=== PATIENT | male | born 1940 | race Caucasian/White ===

== ENCOUNTER → 2016-09-07 | Outpatient (CLI) | payer OTHER ==
--- NOTE | 2016-09-07 17:35 | DX ---
DEXA Bone Mineral Densitometry Indication: 75-year-old man presenting for baseline evaluation. Comparison: None Technique: Bone Mineral Densitometry (BMD) by Dual Energy X-Ray Absorptiometry (DEXA) was performed utilizing the [employer] Medium scanner. The lumbar spine was evaluated in the AP projection. The bilate ral hips and left forearm were evaluated in the AP projection. Vertebral fracture assessment was also performed. Findings: AP Lumbar Spine: The L1, L2, L3 and L4 vertebral bodies were evaluated. BMD: 1.752 gm/cm2 T-score: 4.2 SD Z-score: 0.4 SD AP Left Hip: Neck BMD: 1.003 gm/cm2 T-score: -0.5 SD Z-score: 0.6 SD AP Right Hip: Neck BMD: 1.070 gm/cm2 T-score: 0 SD Z-score: 1.1 SD AP Left Forearm, 08/11: BMD: 0.999 gm/cm2 T-score: 0.1 SD Z-score: 1 SD Vertebral Fracture Assessment: No significant fracture deformity. 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 Conclusion: Considering the lowest measured site, the patient has normal bone mineral density. The te n year risk for any major osteoporotic fracture is 5% and for a hip fracture is 0.9%. Any bone loss i n this patient is probably related to aging or estrogen deficiency. Recommendations: To prevent osteoporosis and to promote the patient's bone density, the following re commendations should be considered: 1. Pursue a regular regimen of weightbearing and muscle-strengthening exercises in order to reduce t he risk of falls and fractures (as tolerated by the patient's general medical condition). 2. Ensure that daily dietary calcium uptake is maximized. 3. Ensure that intake of vitamin D is 400 to 800 international units. 4. Consider follow up DEXA scan in two years to assess the rate of bone loss in this patient.
== END ==
LOC: FIMAGING 10:30
PROVIDERS: ATTEND Family Medicine
DX: Z13.820 Encounter for screening for osteoporosis (principal)